=== PATIENT | female | born 1975 | race Caucasian/White ===

== ENCOUNTER → 2020-07-28 | Outpatient (CLI) | payer BC ==
[~2020-07-28] MED LIST: AZAT50TA9 PO; FAMO20TA7 PO; FLUO20CA23 PO; HYDR-3237 PO; IBUP-1223 PO; LEVO125T5 PO; LISI-167 PO; METR-90 PO; NAPR1TAB21 PO; NITR50CA11 PO; NORE5TAB PO; OMEP20TA62 PO; PHEN-418 PO; PREG200C PO; SIMV20TA19 PO; TRAZ50TA66 PO
== END | disposition home or self-care (01) ==
LOC: STAR 07:58
PROVIDERS: ATTEND Thoracic Surgery (Cardiothoracic Vascular Surgery)
DX: Z20.822 Contact with and (suspected) exposure to COVID-19 (principal)
CPT/HCPCS: U0003

== ENCOUNTER 2020-09-08 12:33 | Outpatient (CLI) | payer BC | END 2020-09-08 23:59 | disposition home or self-care (01) | LOC: COVVAC 12:33 | PROVIDERS: ATTEND Thoracic Surgery (Cardiothoracic Vascular Surgery) | DX: Z20.822 Contact with and (suspected) exposure to COVID-19 (principal) | CPT/HCPCS: U0003 ==

== ENCOUNTER 2020-09-14 07:05 | Day surgery (SDC) | payer BC ==
[~2020-09-14] VITALS: Ht 172.7 cm; Wt 97.6 kg
[~2020-09-14 07:05] MED LIST changes: +BUPIVACAINE/PF 0.5% ONE; +EPINEPHRINE 1 MG/ML, 1ML ONE
[2020-09-14 08:01] VITALS: BP 113/76
[2020-09-14] MEDS ORDERED: CHLORHEXIDINE 15 ML UDC PO ONE (08:30)
[2020-09-14] MEDS ORDERED: LACTATED RINGERS 1,000 ML IV SCH ×2 (08:30→10:30)
[2020-09-14] MEDS ORDERED: MIDAZOLAM 1 MG/ML, 2ML ONE (09:06)
[2020-09-14] MEDS ORDERED: FENTANYL PF 250 MCG/5ML ONE (09:06)
[2020-09-14] MEDS ORDERED: CEFAZOLIN 1,000 MG ONE (09:11)
[2020-09-14] MEDS ORDERED: PROPOFOL 10 MG/ML, 20ML ONE (09:11)
[2020-09-14] MEDS ORDERED: ROCURONIUM 10MG/ML,5ML ONE (09:11)
[2020-09-14] MEDS ORDERED: DEXAMETHASONE 4 MG/ML, 5ML ONE ×2 (09:11)
[2020-09-14] MEDS ORDERED: SUCCINYLCHOLINE 20 MG/ML, 10ML ONE (09:11)
[2020-09-14] MEDS ORDERED: ONDANSETRON 2MG/ML, 2ML ONE ×2 (09:11)
[2020-09-14] MEDS ORDERED: BUPIVACAINE/PF-EPI 0.5% 1:200K INFIL ONE (09:33)
[2020-09-14] MEDS ORDERED: FENTANYL PF 100 MCG/2ML ONE ×2 (10:01→10:41)
[2020-09-14] MEDS ORDERED: GLYCOPYRROLATE 0.2MG/1ML, 5ML ONE (10:08)
[2020-09-14] MEDS ORDERED: NEOSTIGMINE 1 MG/ML, 10ML ONE (10:08)
[2020-09-14] MEDS ORDERED: PROMETHAZINE 12.5 MG SUPP PR PRN (10:30)
[2020-09-14] MEDS ORDERED: ACETAMINOPHEN 325 MG TABLET PO PRN (10:30)
[2020-09-14] MEDS ORDERED: ONDANSETRON 2MG/ML, 2ML IVPush PRN ×2 (10:30)
[2020-09-14] MEDS ORDERED: HYDROcodone/APAP 7.5-325MG/15ML UDC PO PRN ×2 (10:30)
[2020-09-14] MEDS ORDERED: METHOCARBAMOL 1,000 MG in DEXTROSE 5% 100 ML IV ONE (10:30)
[2020-09-14] MEDS ORDERED: EPHEDRINE 50 MG/ML, 1ML IVPush PRN (10:30)
[2020-09-14] MEDS ORDERED: KETOROLAC 30 MG/1 ML IVPush PRN (10:30)
[2020-09-14] MEDS ORDERED: FENTANYL PF 100 MCG/2ML IV PRN (10:30)
[2020-09-14] MEDS ORDERED: DIAZEPAM 5 MG/ML, 2ML IVPush PRN (10:30)
[2020-09-14] MEDS ORDERED: DIPHENHYDRAMINE 50 MG/ML, 1ML IVPush PRN ×2 (10:30)
[2020-09-14] MEDS ORDERED: hydrALAzine 20 MG/ML, 1ML IV PRN (10:30)
[2020-09-14] MEDS ORDERED: OXYcodone 5 MG/5 ML ORAL.SOL UDC PO PRN (10:30)
[2020-09-14] MEDS ORDERED: LABETALOL 5MG/ML, 20ML IV PRN (10:30)
[2020-09-14] MEDS ORDERED: morphine SULFATE 10 MG/ML, 1ML IVPush PRN (10:30)
[2020-09-14] MEDS ORDERED: ALBUTEROL SULFATE 2.5 MG/3 ML NPPB PRN (10:30)
[2020-09-14] MEDS ORDERED: PROMETHAZINE 25 MG/ML, 1ML IVPush PRN (10:30)
[2020-09-14] MEDS ORDERED: MEPERIDINE/PF 25MG/0.5ML IVPush PRN (10:30)
[2020-09-14] MEDS ORDERED: MIDAZOLAM 1 MG/ML, 2ML IV PRN (10:30)
[2020-09-14] MEDS ORDERED: HYDROmorphone 1 MG/ML, 1ML INJ IVPush PRN (10:30)
[2020-09-14] MEDS ORDERED: KETOROLAC 30 MG/1 ML ONE (10:36)
== END 2020-09-14 12:30 | disposition home or self-care (01) ==
LOC: OUT 07:05
PROVIDERS: ATTEND Thoracic Surgery (Cardiothoracic Vascular Surgery)
DX: K44.9 Diaphragmatic hernia without obstruction or gangrene (principal); K21.9 Gastro-esophageal reflux disease without esophagitis; E03.9 Hypothyroidism, unspecified; F32.9 Major depressive disorder, single episode, unspecified; J45.909 Unspecified asthma, uncomplicated; M79.7 Fibromyalgia; G89.4 Chronic pain syndrome; E06.3 Autoimmune thyroiditis; M35.00 Sjogren syndrome, unspecified; E11.9 Type 2 diabetes mellitus without complications; E55.9 Vitamin D deficiency, unspecified; E66.9 Obesity, unspecified; Z68.32 Body mass index [BMI] 32.0-32.9, adult; Z79.890 Hormone replacement therapy; Z79.891 Long term (current) use of opiate analgesic; Z79.899 Other long term (current) drug therapy; Z87.891 Personal history of nicotine dependence; Z88.8 Allergy status to other drugs, medicaments and biological substances; Z90.3 Acquired absence of stomach [part of]; Z83.3 Family history of diabetes mellitus
CPT/HCPCS: 43280; J0171; J0330; J0690; J1100; J1885; J2250; J2405; J2704; J2710; J2800; J3010; J7120